=== PATIENT | female | born 1960 | race Caucasian/White ===

== ENCOUNTER 2021-06-25 19:27 | Emergency (ER) | payer MEDICARE ==
[~2021-06-25] VITALS: Ht 152.4 cm; Wt 89.4 kg
[~2021-06-25 19:27] MED LIST: BASAGLAR K100 UNIT/1 SQ; CELEXA20 MG PO; COZAAR25 MG PO; GLUCOPHAGE500 MG PO; LIPITOR40 MG PO; LO-DOSE ASPIRIN81 M1 PO; NORVASC10 MG PO; NOVOLOG FL100 UNIT/1 SUB-Q; OMEPRAZOLE20 MG PO; TOPROL XL50 MG PO; VICTOZA 2-0.6 MG/0.1 SUB-Q
== END 2021-06-25 22:09 | disposition home or self-care (01) ==
LOC: ED 19:27
DX: S89.92XA Unspecified injury of left lower leg, initial encounter (principal); X50.9XXA Other and unspecified overexertion or strenuous movements or postures, initial encounter
CPT/HCPCS: 73560; 99283-25